=== PATIENT | female | born 1995 | race Caucasian/White ===

== ENCOUNTER 2018-05-12 16:41 | Emergency (ER) | payer MEDICAID ==
[~2018-05-12] VITALS: Ht 165.1 cm; Wt 50.4 kg
[2018-05-12 17:10] VITALS: BP 121/80
--- NOTE | 2018-05-12 17:49 | NUR ---
PATIENT AMBULATED TO BED 2
--- NOTE | 2018-05-12 17:55 | NUR ---
PATIENT PRESENTS TO ED OR SUTURE REMOVAL, HAS 8 STITCHES TO L FOREARM. NO BLEEDING NOTED OR FOUL ODOR. PATIENT STATES PAIN OF 4/10 AT THIS TIME; VSS; PATIENT POSITIONED FOR COMFORT; HOB ELEVATED; BEDRAILS UP X2; BED DOWN. ER MD MADE AWARE OF PT STATUS.
--- NOTE | 2018-05-12 17:59 | NUR ---
DR. MUÑOZ AT BEDSIDE TO REMOVE THE SUTURES.
--- NOTE | 2018-05-12 18:00 | NUR ---
PT STATED HUNGRY, FOOD OFFERED, PT STATED SHE [facility].
--- NOTE | 2018-05-12 18:13 | NUR ---
Patient discharged with v/s stable. Written and verbal after care instructions given and explained. Patient verbalized understanding. Ambulatory with steady gait. All questions addressed prior to discharge. Advised to follow up with PMD.
== END 2018-05-12 18:13 | disposition home or self-care (01) ==
LOC: MED 16:41
DX: Z48.02 Encounter for removal of sutures (principal)
CPT/HCPCS: 99283

== ENCOUNTER 2018-05-19 10:34 | Inpatient (IN) | payer MEDICAID ==
[~2018-05-19] VITALS: Ht 165.1 cm; Wt 51.3 kg
[2018-05-19 10:40] VITALS: BP 117/98
--- NOTE | 2018-05-19 10:42 | NUR ---
PT AMB TO ER BED 3 WITH MOM AT SIDE.
--- NOTE | 2018-05-19 10:51 | NUR ---
PT BIB STAFF OF [facility] FOR LEFT ARM PAIN. PT NOTED WITH MULTIPLE FRESH CUT WOUND ON LEFT ARM. PT ADMITS CUTTING ARM WITH RAZOR TO COPE ANXIETY. NO ACTIVE BLEEDING FROM THE CUT SITE AT THIS TIME. MULTIPLE OLD CUT SACBS NOTED ON LEFT ARM. STATES PAIN OF 4/10 AT THIS TIME. DENIES ANY FEVER. DENIES ANY OTHER MEDICAL PROBLEM AT THIS TIME. VSS. ER AWARE.
[2018-05-19] MEDS ORDERED: LIDOCAINE 1% 500 MG/50 ML VIAL INJ ONE ×2 (10:54→10:55)
--- NOTE | 2018-05-19 10:54 | NUR ---
PT EVALUATED BY MARK CRAFT.
[2018-05-19] MEDS ORDERED: LIDOCAINE MPF 1% 5mL VIAL ONE ×2 (11:25→13:53)
[2018-05-19 11:35] LABS: BASOPHILS % (AUTO) 0.4 % (0.0-2.0); EOSINOPHILS # (AUTO) 0.1 K/uL (0-0.4); EOSINOPHILS % (AUTO) 1.3 % (0.0-4.0); LYMPHOCYTES # (AUTO) 1.3 K/uL (2.5-16.5); LYMPHOCYTES % (AUTO) 15.2 % (20.5-51.1); MEAN CORPUSCULAR HEMOGLOBIN 31 pg (27-31); MEAN CORPUSCULAR HGB CONC 34 g/dL (33-37); MEAN CORPUSCULAR VOLUME 92.2 fL (80-94); MONOCYTES # (AUTO) 0.6 K/uL (0.8-1.0); MONOCYTES % (AUTO) 7.2 % (1.7-9.3); NEUTROPHILS # (AUTO) 6.7 K/uL (1.8-7.7); NEUTROPHILS % (AUTO) 75.9 % (42.2-75.2); PLATELET COUNT (AUTO) 303 K/uL (140-450); RED BLOOD CELL COUNT(AUTO) 4.44 MIL/uL (4.20-5.40); RED CELL DISTRIBUTION WIDTH 12.9 % (11.6-13.7); WHITE BLOOD COUNT (AUTO) 8.8 K/uL (4.8-10.8)
--- NOTE | 2018-05-19 11:39 | NUR ---
PT MOVED TO ER BED 4 WITH EMT JUSTIN AT BEDSIDE. [facility] SECURITY AT BEDSIDE-ALL BELONGING SENT. RT AT BEDSIDE. LAB AT BEDSIDE UA/UDS SENT TO LAB
--- NOTE | 2018-05-19 11:48 | NUR ---
CALLED [facility] FOR 1570 EVALUATION.
[2018-05-19 11:49] LABS: ANION GAP 13.5 (8-16); CARBON DIOXIDE 27.1 mmol/L (21-32); CHLORIDE 103 mmol/L (98-107); CREATININE 0.8 mg/dL (0.6-1.3); GFR ARICAN-AMERICAN 114 mL/min (>90); GLUCOSE 86 mg/dL (74-106); POTASSIUM 3.6 mmol/L (3.5-5.1); SODIUM SERUM 140 mmol/L (136-145); UREA NITROGEN, BLOOD 13 mg/dL (7-18)
--- NOTE | 2018-05-19 11:49 | NUR ---
[place] [employer] AT THE BEDSIDE EVALUATING PT AT THIS TIME.
[2018-05-19 11:51] LABS: APPEARANCE,URINE SL CLOUDY (CLEAR); BILIRUBIN,URINE NEGATIVE (NEGATIVE); BLOOD, URINE TRACE-I (NEGATIVE); COLOR,URINE YELLOW (YELLOW); LEUKOCYTE ESTERASE ,URINE 3+ (NEGATIVE); NITRITE, URINE NEGATIVE (NEGATIVE); PH,URINE 6.5 (5.0-9.0); UGLUCOSE NEGATIVE (NEGATIVE)
[2018-05-19 11:54] LABS: ASPARTATE AMINOTRANSFERASE 27 U/L (15-37); TOTAL BILIRUBIN 0.2 mg/dL (0.0-1.0)
[2018-05-19 11:54] LABS: BARBITURATE, URINE NEG. ng/ml (NEG <=200); BENZODIAZEPINE, URINE NEG. ng/mL (NEG <=200); CANNABINOID, URINE NEG. ng/mL (NEG <=50); COCAINE, URINE NEG. ng/mL (NEG <=300); OPIATE, URINE NEG. ng/mL (NEG <=2000); PHENCYCLIDINE SCREEN,URINE NEG. ng/mL (NEG <=25)
[2018-05-19 11:56] LABS: RBC,URINE 11-20 (MOD) /HPF (0-5); WBC,URINE 80-100 /HPF (0-5)
[2018-05-19] MEDS ORDERED: cefTRIAXone 1,000 MG VIAL ONE (13:54)
--- NOTE | 2018-05-19 13:56 | NUR ---
PT MEDICALLY CLEARED ACCORDING TO DR JONES, TELEPSYCH CONSULT REQUEST SUBMITTED
--- NOTE | 2018-05-19 14:42 | NUR ---
XYLOCAINE 1% WAS USED BY DOCTOR DURING SUTURE PROCEDURE.
--- NOTE | 2018-05-19 15:14 | NUR ---
SPOKE WITH DR. JI AND GAVE REPORT ON PATIENT
--- NOTE | 2018-05-19 15:26 | NUR ---
PSYCH CONSULT WITH DR BURGOS STARTED
--- NOTE | 2018-05-19 15:40 | NUR ---
SPOKE WITH DR. JI AND HE RECOMMENDS ADMISSION TO INPATIENT FACILITY. DR. JONES MADE AWARE. HX---BIPOLAR AND ANXIETY NO LONGER TAKING MEDICATIONS DUE TO LACK OF FINANCIAL SUPPORT
--- NOTE | 2018-05-19 17:00 | NUR ---
RESTING COMFORTABLY AT THIS TIME. ALTON AT THE BEDSIDE. DRESSING SITE INTACT.
--- NOTE | 2018-05-19 17:18 | NUR ---
Called [facility]ara [facility], they have no beds at this time and are still reviewing charts.
--- NOTE | 2018-05-19 17:19 | NUR ---
Called [facility], s/w Laura. No beds at this time.
--- NOTE | 2018-05-19 17:21 | NUR ---
Called [facility] and s/w Aj, they have no beds at this time.
--- NOTE | 2018-05-19 17:28 | NUR ---
Called jimmy [facility]. No beds at this time.
--- NOTE | 2018-05-19 18:10 | NUR ---
Packet faxed to [facility].
--- NOTE | 2018-05-19 19:16 | NUR ---
REPORT GIVEN TO SCREEN EXAMINER RN.
[2018-05-19] MEDS ORDERED: MORPHINE SULFATE 2 MG/ML SYR IVP PRN (20:55)
[2018-05-19] MEDS ORDERED: HYDROcodone/APAP 7.5/325 MG 1 TAB PO PRN (20:55)
[2018-05-19] MEDS ORDERED: ONDANSETRON 4 MG/2 ML VIAL IM/IVP PRN (20:55)
[2018-05-19] MEDS ORDERED: DOCUSATE SODIUM 100 MG GELCAP PO PRN (20:55)
--- NOTE | 2018-05-19 21:05 | NUR ---
development technical lead at bedside.
--- NOTE | 2018-05-19 21:34 | NUR ---
PT COOPERATIVE AND ACTING APPROPRIATLY. PT IS AAOX4. SITTER AT BEDSIDE.
--- NOTE | 2018-05-19 21:57 | NUR ---
PATIENT TAKEN TO ROOM 110-A FOR CONTINUED CARE AND MONITORING ON THE MED SURG FLOOR UNDER THE DIRECTION OF DR COHEN. REPORT GIVEN TO RN. PATIENT STABLE AND CALM DURING TRANSFER.
[2018-05-19 22:00] VITALS: BP 109/75
--- NOTE | 2018-05-19 22:00 | NUR ---
PT ARRIVED TO UNIT VIA WHEELCHAIR AND AMBULATED WITHOUT ASSISTANCE TO BED-STABLE. AOX4, ON ROOM AIR WITH RIGHT AC #20G. LEFT SELF INFLICTED LACERATIONS ON FA. 2.5 INCHES WITH 3 STITCHES AND 3.5 WITH 4 STITCHES. MULTIPLE LACERATIONS WITH SURGICAL GLUE APPLIED- PICTURES IN CHART- PLEASE SEE WOUND ASSESSMENT. VITAL SIGNS TAKEN AND TOLERATED WELL. MRSA NARES COLLECTED. DISCUSSED PLAN OF CARE AND PT VERBALIZED UNDERSTANDING. NO S/S OF RESPIRATORY DISTRESS OR DISCOMFORT NOTED AT THIS TIME. ORIENTED PT TO BEDROOM, CALL LIGHT AND BATHROOM. BED IN LOWEST POSITION, BED BREAKS ON, BOTH SIDE RAILS UP. BEDSIDE TABLE AND CALL LIGHT ARE WITHIN REACH. WILL CONTINUE TO MONITOR.
[2018-05-19] MEDS: NACL 0.9% 1,000 ML IV SCH (22:22)
[2018-05-19 22:23] LABS: PROTHROMBIN TIME 10.4 secs (10.8-13.4)
[2018-05-19 22:47] LABS: MAGNESIUM 2.2 mg/dL (1.8-2.4); PHOSPHORUS 4.6 mg/dL (2.5-4.9); THYROID STIMULATING HORMONE 2.58 uIU/mL (0.34-3.74)
--- NOTE | 2018-05-20 | NUR ---
PT RESTING IN BED. NO S/S OF RESPIRATORY DISTRESS OR DISCOMFORT NOTED AT THIS TIME. WILL CONTINUE TO MONITOR.
--- NOTE | 2018-05-20 00:26 | NUR ---
Follow up calls were made to the contracted facilities. Still no beds available at this time. [facility], spoke with Dustin. [facility], spoke with Wild. [facility], spoke with James. [facility], spoke with Halima. [facility], spoke with Josephine. [facility], spoke with Mela. will notify the unit when we have any new information.
--- NOTE | 2018-05-20 02:00 | NUR ---
PT CONTINUES TO SLEEP IN BED. NO S/S OF RESPIRATORY DISTRESS OR DISCOMFORT NOTED AT THIS TIME. WILL CONTINUE TO MONITOR.
--- NOTE | 2018-05-20 04:00 | NUR ---
PT CONTINUES TO SLEEP IN BED. NO S/S OF RESPIRATORY DISTRESS OR DISCOMFORT NOTED AT THIS TIME. WILL CONTINUE TO MONITOR.
--- NOTE | 2018-05-20 06:00 | NUR ---
PT CONTINUES TO SLEEP IN BED. NO S/S OF RESPIRATORY DISTRESS OR DISCOMFORT NOTED AT THIS TIME. WILL CONTINUE TO MONITOR.
[2018-05-20] MEDS: NACL 0.9% 1,000 ML IV SCH ×2 (06:58→17:13)
[2018-05-20 07:13] LABS: BASOPHILS % (AUTO) 0.5 % (0.0-2.0); EOSINOPHILS # (AUTO) 0.2 K/uL (0-0.4); EOSINOPHILS % (AUTO) 3.7 % (0.0-4.0); HEMATOCRIT 36.4 % (36-48); HEMOGLOBIN 12.4 g/dL (12.0-16.0); LYMPHOCYTES # (AUTO) 1.7 K/uL (2.5-16.5); LYMPHOCYTES % (AUTO) 30.4 % (20.5-51.1); MEAN CORPUSCULAR HEMOGLOBIN 32 pg (27-31); MEAN CORPUSCULAR HGB CONC 34 g/dL (33-37); MEAN CORPUSCULAR VOLUME 92.2 fL (80-94); MONOCYTES # (AUTO) 0.7 K/uL (0.8-1.0); MONOCYTES % (AUTO) 12.9 % (1.7-9.3); NEUTROPHILS % (AUTO) 52.5 % (42.2-75.2); PLATELET COUNT (AUTO) 269 K/uL (140-450); RED BLOOD CELL COUNT(AUTO) 3.95 MIL/uL (4.20-5.40); RED CELL DISTRIBUTION WIDTH 12.7 % (11.6-13.7); WHITE BLOOD COUNT (AUTO) 5.8 K/uL (4.8-10.8)
--- NOTE | 2018-05-20 07:28 | NUR ---
ENDORSED PT CARE TO DAY SHIFT NURSE MAYO FOR CONTINUITY OF CARE.
--- NOTE | 2018-05-20 07:35 | NUR ---
RECEIVED REPORT FROM INSIDE HORTICULTURAL SPECIALTY GROWER NURSE. PATIENT LYING DOWN IN BED SLEEPING, AROUSABLE BY VOICE. NO DISTRESS NOTED. DENIES ANY PAIN. DENIES ANY THOUGHTS OF HARMING SELF AT THIS TIME. AAOX4, CALM, COOPERATIVE, SKIN COLOR APPROPRIATE TO ETHNICITY, WARM TO TOUCH. HAS LEFT FOREARM LACERATIONS, DRESSING IS DRY AND INTACT. IV SITE INTACT, PATENT, AND INFUSING IVF PER MD ORDERS. RESPIRATIONS EVEN, UNLABORED, ON ROOM AIR. REVIEWED PLAN OF CARE WITH PATIENT. PATIENT VERBALIZED UNDERSTANDING. SAFETY MEASURES IN PLACE, SITTER AT BEDSIDE. WILL CONTINUE TO MONITOR.
[2018-05-20 07:48] LABS: MAGNESIUM 2.1 mg/dL (1.8-2.4); PHOSPHORUS 4.5 mg/dL (2.5-4.9)
--- NOTE | 2018-05-20 07:53 | NUR ---
PATIENT HAS BEEN SCREENED AND CATEGORIZED LOW NUTRITION RISK. PATIENT WILL BE SEEN WITHIN 7 DAYS OF ADMISSION. 05/26/[address]
[2018-05-20 08:00] VITALS: BP 104/56
--- NOTE | 2018-05-20 08:20 | NUR ---
GAVE REPORT TO RYAN HERNANDEZ FOR CONTINUITY OF CARE. PATIENT IN STABLE CONDITION.
--- NOTE | 2018-05-20 08:21 | NUR ---
Received report from nurse Gaitan. Pt resting quietly in bed, no signs of distress. Left forearm sutures dry & intact. No c/o pain. Right AC IV asymptomatic with ongoing NS @ 100ml/hr. Sitter at bedside for continuous monitoring.
[2018-05-20] MEDS: LACTOBACILLUS RHAMNOSUS GG 1 EACH CAP PO SCH (08:32)
[2018-05-20 08:42] LABS: CHOL/HDL RATIO 2.4 (1-4.5)
[2018-05-20 08:50] LABS: ANION GAP 14.1 (8-16); CARBON DIOXIDE 26.2 mmol/L (21-32); CREATININE 0.8 mg/dL (0.6-1.3); POTASSIUM 4.3 mmol/L (3.5-5.1)
[2018-05-20] MEDS ORDERED: ESCITALOPRAM 20 MG TAB PO SCH (09:00)
--- NOTE | 2018-05-20 10:00 | NUR ---
Dr. Niño (psychiatrist) came in to assess pt.
--- NOTE | 2018-05-20 11:22 | NUR ---
Dr. Farley at bedside to assess pt.
--- NOTE | 2018-05-20 11:45 | NUR ---
Left forearm lacerations dry, scabs & sutures intact, & BRYAN. Pt requests to cover with gauze. Lacerations flushed with NS, patted dry, painted lightly with betadine, & wrapped whole forearm with stretch gauze. Pt denies any pain during tx. Pt verbalized that she was cutting herself to replace her addiction with meth. Active listening, validation, & reassurance provided. Pt interacting appropriately. Sitter at bedside.
[2018-05-20 16:00] VITALS: BP 99/56
--- NOTE | 2018-05-20 19:15 | NUR ---
Report given to pm nurse Dxa. Pt quietly resting in bed, awake, no signs of distress.
--- NOTE | 2018-05-20 19:16 | NUR ---
RECEIVED PT ON BED, AAOX4, CALM AND COOPERATIVE, DENIES ANY INTENTION TO HARM SELF AT THIS TIME, IVF INFUSING WELL, DRESSING TO LEFT ARM DRY AND INTACT, MAINTAINED ON 5150, SITTER IN PLACED.
[2018-05-20] MEDS ORDERED: ZOLPIDEM 5 MG TAB PO ONE (20:20)
--- NOTE | 2018-05-20 20:35 | NUR ---
PT AMBULATED TO BR WITH STEADY GAIT, PT REQUESTING SOMETHING FOR SLEEP, DR ANDRADE WITH NEW ORDER, MEDICATED WITH AMBIEN PO ORDERED, ALL NEEDS ATTENDED.
--- NOTE | 2018-05-20 22:10 | NUR ---
PT SLEEPING, NO SIGNS OF DISTRESS, MONITORED CLOSELY, SITTER IN PLACE.
[2018-05-21 00:35] VITALS: BP 96/50
--- NOTE | 2018-05-21 00:35 | NUR ---
PT AWAKE, VITAL SIGNS STABLE, DENIES PAIN, AMBULATED TO BR WITH STEADY GAIT, VOIDED FREELY, SANITARY PAD PROVIDED PER REQUEST, CONTINUE TO MONITOR CLOSELY, SITTER IN PLACE.
[2018-05-21] MEDS: NACL 0.9% 1,000 ML IV SCH (03:25)
--- NOTE | 2018-05-21 03:52 | NUR ---
PT AMBULATED TO BR WITH STEADY GAIT, IVF INFUSING WELL, CALM AND COOPERATIVE, MONITORED CLOSELY.
--- NOTE | 2018-05-21 05:20 | NUR ---
At this time there are still no vacancy at any of the designated facilities , will endorsed to AM shift
[2018-05-21] MEDS ORDERED: INFLUENZA VIRUS VACCINE QUAD 0.5 ML SYR IMVAC PRN (06:20)
[2018-05-21] MEDS ORDERED: PNEUMOCOCCAL VACCINE 23 MCG/0.5 ML VIAL IMVAC PRN (06:20)
--- NOTE | 2018-05-21 06:30 | NUR ---
PT AWAKE ASKING WHAT TIME IS BREAKFAST, MADE AWARE OF TIME, DENIES ANY PAIN, IVF INFUSING WELL, MONITORED CLOSELY.
--- NOTE | 2018-05-21 07:16 | NUR ---
PT AWAKE, NO SIGNS OF DISTRESS, REPORT GIVEN TO RN DAVID FOR CONTINUITY OF CARE.
--- NOTE | 2018-05-21 07:17 | NUR ---
Report received from pm nurse Dax. Pt asleep in bed, respirations even & nonlabored, FLACC 0. RAC IV asymptomatic with ongoing NS @ 100ml/hr. Sitter at bedside.
[2018-05-21 08:00] VITALS: BP 111/73
[2018-05-21] MEDS: LACTOBACILLUS RHAMNOSUS GG 1 EACH CAP PO SCH (09:06)
[2018-05-21] MEDS: ESCITALOPRAM 20 MG TAB PO SCH (09:06)
--- NOTE | 2018-05-21 10:15 | NUR ---
Pt requesting for reading materials. desk pen set assembler notified of request, will bring reading materials to room.
--- NOTE | 2018-05-21 10:53 | NUR ---
PT COMPLAINED THAT BANDAGE ON ARM WAS ITCHING. CHANGED BANDAGE. CLEANED WOUNDS WITH NS AND BEDADINE. AND PLACED SMALLER DRESSINGS ON WOUNDS.
--- NOTE | 2018-05-21 11:20 | NUR ---
Dr. Vail at bedside to asses pt. Pt interacting appropriately.
[2018-05-21 14:29] LABS: BASOPHILS % (AUTO) 0.8 % (0.0-2.0); EOSINOPHILS # (AUTO) 0.2 K/uL (0-0.4); EOSINOPHILS % (AUTO) 3.9 % (0.0-4.0); HEMATOCRIT 36.3 % (36-48); HEMOGLOBIN 12.4 g/dL (12.0-16.0); LYMPHOCYTES % (AUTO) 31.8 % (20.5-51.1); MEAN CORPUSCULAR HEMOGLOBIN 31 pg (27-31); MEAN CORPUSCULAR HGB CONC 34 g/dL (33-37); MEAN CORPUSCULAR VOLUME 91.8 fL (80-94); MONOCYTES # (AUTO) 0.6 K/uL (0.8-1.0); MONOCYTES % (AUTO) 10.1 % (1.7-9.3); NEUTROPHILS # (AUTO) 3.3 K/uL (1.8-7.7); NEUTROPHILS % (AUTO) 53.4 % (42.2-75.2); PLATELET COUNT (AUTO) 279 K/uL (140-450); RED BLOOD CELL COUNT(AUTO) 3.96 MIL/uL (4.20-5.40); RED CELL DISTRIBUTION WIDTH 12.8 % (11.6-13.7); WHITE BLOOD COUNT (AUTO) 6.3 K/uL (4.8-10.8)
[2018-05-21 14:45] LABS: ANION GAP 13.3 (8-16); CARBON DIOXIDE 27.5 mmol/L (21-32); CREATININE 0.8 mg/dL (0.6-1.3); POTASSIUM 3.8 mmol/L (3.5-5.1)
--- NOTE | 2018-05-21 14:55 | NUR ---
ROUNDED ON PT. PT RESTING IN BED. SITTER AT BEDSIDE. WILL CONTINUE TO MONITOR
[2018-05-21 16:00] VITALS: BP 110/68
--- NOTE | 2018-05-21 18:10 | NUR ---
Inpatient psych placement f/u: Received call from Yolanda ([facility]), states that pt was denied placement from their hospital because they do not accept commercial insurance.
--- NOTE | 2018-05-21 19:15 | NUR ---
endorsed pt to nightshift nurse. pt resting comfortably in bed. sitter at bedside. pt stable all safety measures in place
--- NOTE | 2018-05-21 19:16 | NUR ---
RECEIVED PT ON BED, AAOX4, CALM AND COOPERATIVE READING A MAGAZINE, DENIES ANY INTENTION TO HARM SELF AT THIS TIME, DRESSING TO LEFT ARM DRY AND INTACT, STILL ON 5150 HOLD, SITTER IN PLACE.
[2018-05-21] MEDS ORDERED: ZOLPIDEM 5 MG TAB PO ONE (20:10)
--- NOTE | 2018-05-21 20:22 | NUR ---
AMBIEN PO GIVEN FOR INSOMNIA, MONITORED CLOSELY.
--- NOTE | 2018-05-21 20:59 | NUR ---
There are still no placement available at this time will notify charge nurse if a bed is found for placement.
--- NOTE | 2018-05-21 21:30 | NUR ---
PT REQUESTING TO WALK AROUND THE UNIT, ACCOMPANIED BY CHARGE NURSE KRISTY, TOLERATED WELL, WENT BACK TO BED, MONITORED CLOSELY.
--- NOTE | 2018-05-21 22:10 | NUR ---
PT STILL CANT SLEEP, REQUESTING FOR ANOTHER SLEEPING PILL, TALKED TO DR ANDRADE AND STATED JUST WAIT FOR ANOTHER HOUR FOR THE SLEEPING PILL TO TAKE EFFECT AND TO LET HER KNOW IF PT STILL AWAKE, PT MADE AWARE, WARM MILK PROVIDED A SLEEPING AID, MONITORED CLOSELY.
--- NOTE | 2018-05-21 23:20 | NUR ---
Spoke to Anthony at [facility] , packet still being looked over, will let Lisa DAVIS know if placement is found.
--- NOTE | 2018-05-21 23:25 | NUR ---
PT SLEEPING, NO SIGNS OF DISTRESS, CONTINUE TO MONITOR CLOSELY, SITTER IN PLACE.
[2018-05-22 01:00] VITALS: BP 100/50
--- NOTE | 2018-05-22 01:00 | NUR ---
PT AMBULATED TO BR WITH STEADY GAIT, VITAL SIGNS STABLE, DENIES ANY PAIN, MONITORED CLOSELY, SITTER IN PLACE.
--- NOTE | 2018-05-22 05:00 | NUR ---
PT SLEEPING, NO DISTRESS NOTED, MONITORED CLOSELY.
--- NOTE | 2018-05-22 07:15 | NUR ---
PT SLEEPING, NO SIGNS OF DISTRESS, REPORT GIVEN TO RYAN GARCIA FOR CONTINUITY OF CARE.
--- NOTE | 2018-05-22 07:20 | NUR ---
RECEIVED PT FROM ACCOUNT AUDITOR NURSEVIKASH. PT IS AWAKE AND LYING ON THE BED WITH AN IV LINE ON THE RT AC G.20 ON SALINE LOCK, ON A 5150 HOLD WITH 1:1 SITTER ON THE BEDSIDE, PT DENIES PAIN AND NO SOB NOTED, PT IS AMBULATORY, NO SIGN OF DISTRESS NOTED AND WILL MONITOR PT.
[2018-05-22 07:38] LABS: BASOPHILS % (AUTO) 0.5 % (0.0-2.0); EOSINOPHILS # (AUTO) 0.2 K/uL (0-0.4); EOSINOPHILS % (AUTO) 3.4 % (0.0-4.0); HEMATOCRIT 37.6 % (36-48); LYMPHOCYTES # (AUTO) 1.8 K/uL (2.5-16.5); LYMPHOCYTES % (AUTO) 24.3 % (20.5-51.1); MEAN CORPUSCULAR HEMOGLOBIN 31 pg (27-31); MEAN CORPUSCULAR HGB CONC 35 g/dL (33-37); MEAN CORPUSCULAR VOLUME 90.8 fL (80-94); MONOCYTES # (AUTO) 0.8 K/uL (0.8-1.0); MONOCYTES % (AUTO) 10.7 % (1.7-9.3); NEUTROPHILS # (AUTO) 4.5 K/uL (1.8-7.7); NEUTROPHILS % (AUTO) 61.1 % (42.2-75.2); PLATELET COUNT (AUTO) 271 K/uL (140-450); RED BLOOD CELL COUNT(AUTO) 4.14 MIL/uL (4.20-5.40); RED CELL DISTRIBUTION WIDTH 12.8 % (11.6-13.7); WHITE BLOOD COUNT (AUTO) 7.3 K/uL (4.8-10.8)
[2018-05-22 07:59] LABS: ANION GAP 12.8 (8-16); CARBON DIOXIDE 27.3 mmol/L (21-32); CREATININE 0.7 mg/dL (0.6-1.3); POTASSIUM 4.1 mmol/L (3.5-5.1)
[2018-05-22 08:00] VITALS: BP 115/65
--- NOTE | 2018-05-22 08:00 | NUR ---
PT IS AWAKE AND VITAL SIGNS CHECKED DONE, AND IS WITHIN NORMAL LIMIT. NO SIGN OF DISTRESS NOTED AND WILL MONITOR PT.
[2018-05-22] MEDS: LACTOBACILLUS RHAMNOSUS GG 1 EACH CAP PO SCH (09:00)
[2018-05-22] MEDS: ESCITALOPRAM 20 MG TAB PO SCH (09:01)
--- NOTE | 2018-05-22 09:05 | NUR ---
PT IS AWAKE AND IS CALM, FOLLOWS COMMAND, 1:1 SITTER ON THE BEDSIDE, ORAL AND IV MEDICATIONS WERE GIVEN AND PT TOLERATED IT, WILL MONITOR PT.
--- NOTE | 2018-05-22 11:00 | NUR ---
PT IS SLEEPING NOW, 1:1 SITTER ON THE BEDSIDE.
--- NOTE | 2018-05-22 13:46 | NUR ---
PT IS AWAKE AND WAS GIVEN A BISCUIT AND WATER, PT IS CALM AND RESPONDING APPROPRIATELY. 1:1 SITTER ON THE BEDSIDE. WILL MONITOR PT.
--- NOTE | 2018-05-22 15:40 | NUR ---
PT STOOD UP FROM THE BED AND WENT OUT OF THE DOOR OF THE ROOM BU WA APPREHENDED, OPT VERBALIZED SHE IS FEELING ANXIOUS LAYING DOWN ON THE BED, PT WAS ASSISTED BACK INSIDE THE ROOM AND SAT CALMLY ON THE BED, 1:1 SITTER ON THE BEDSIDE. WILL MONITOR PT.
[2018-05-22 16:00] VITALS: BP 109/65
--- NOTE | 2018-05-22 16:12 | NUR ---
Regional Director Of Admissions Note: I called and spoke with Pauline from [facility] ([place] , she stated referral had been disregarded by their staff because they thought patient had commercial health insurance coverage. I told her it was [facility] managed by [facility]. She requested I fax referral to her. I faxed inquiry, fax .
[2018-05-22] MEDS: ACETAMINOPHEN 325 MG TAB PO PRN ×2 (17:56→22:19)
--- NOTE | 2018-05-22 17:56 | NUR ---
PT VERBALIZED A HEADACHE OF A PAIN RATE OF 5/10 AND ASKED FOR TYLENOL, MEDICATION WAS GIVEN AND PT TOLERATED IT. WILL RE-ASSESS PT IN AN HOUR.
--- NOTE | 2018-05-22 18:45 | NUR ---
DR. DAVIS WAS HERE FOR PATIENT ROUNDS.PT ABLE TO UNDERSTAND EXPLANATION AND ANSWER THE QUESTIONS APPROPRIATELY. Addendum: 05/22/18 at 2344 by Annie Morales RN AMEND TIME TO 2100
--- NOTE | 2018-05-22 18:56 | NUR ---
PT IS SLEEPING NOW.
--- NOTE | 2018-05-22 19:25 | NUR ---
ENDORSED PT TO CATERING DRIVER NURSECE FOR CONTINUITY OF CARE, PT IS STABLE WITH 1:1 SITTER ON THE BEDSIDE.
--- NOTE | 2018-05-22 19:26 | NUR ---
RECEIVED PT FROM AM SHIFT NURSEJOSE. PT AMBULATORY. PT IS AWAKE AND LYING ON THE BED WITH AN IV LINE ON THE LAC G.22 ON SALINE LOCK, ON A 5150 HOLD WITH 1:1 SITTER ON THE BEDSIDE, PT DENIES PAIN AND NO SOB NOTED, NO SIGN OF DISTRESS NOTED AND WILL MONITOR PT. Addendum: 05/22/18 at 2359 by Annie Morales RN PLS AMEND TO NEYMAR Valdez 20
[2018-05-22] MEDS ORDERED: MELATONIN 3 MG TAB PO PRN (20:30)
--- NOTE | 2018-05-22 20:36 | NUR ---
Still awaiting for psych re eval of the pt. in order to find placement for pt., Annie DAVIS made aware.
--- NOTE | 2018-05-22 20:45 | NUR ---
[facility] WAS HERE AND INTERVIEWED PATIENT
--- NOTE | 2018-05-22 21:00 | NUR ---
DR. DAVIS WAS HERE FOR PATIENT ROUNDS.PT ABLE TO UNDERSTAND EXPLANATION AND ANSWER THE QUESTIONS APPROPRIATELY.
--- NOTE | 2018-05-23 00:10 | NUR ---
FAXED DOCUMENT TO CM
--- NOTE | 2018-05-23 00:10 | NUR ---
'S PROGRESS NOTES TO RETAIL EQUIPMENT ASSOCIATE SAID: [facility]. BUT THE DOCTOR;Guillermo MELENDEZ ON HER CHART SAUS; D/C 5150 HOLD. AND TO TRANSFER BACK TO REHAB FACILITY. WILL CONFORM WITH [facility] WHERE TO TRANSFER.
[2018-05-23 00:22] VITALS: BP 108/71
[2018-05-23 05:09] VITALS: BP 123/89
--- NOTE | 2018-05-23 05:48 | NUR ---
PT SLEPT WELL LAST NIGHT W/ OCCASIONAL TRIPS TO THE BATHROOM. STILL RESTING COMFORTABLY IN BED.
--- NOTE | 2018-05-23 06:18 | NUR ---
PT, RESTING IN BED ON LOW LO'S POSITION, IN STABLE CONDITION, FOR CONTINUITY OF CARE OF NEXT SHIFT NURSE.
--- NOTE | 2018-05-23 07:10 | NUR ---
RECEIVED PT FROM SPORTS BROADCASTING INTERNSHIP NURSECE, PT IS ASLEEP AND LYING ON THE BED WITH SIDE RAILS UP AND BED IN LOW POSITION, SUICIDE PRECAUTION INITIATED, 1;1 SITTER ON THE BEDSIDE, PT HAS NO IV LINE ACCESS, PT PULLED IT OUT PER ENDORSEMENT AND REFUSED TO HAVE ANOTHER IV LINE INSERTION, RESPIRATION IS EVEN AND NO SIGN OF DISTRESS NOTED. WILL MONITOR PT.
--- NOTE | 2018-05-23 07:50 | NUR ---
PT IS AWAKE AND SEATED ON THE BED, VITAL SIGNS CHECKED AND BP IS 109/58, PULSE IS 94, TEMPERATURE IS 98.2, O2 SATURATION IS 100% AND RESPIRATION IS 16/MIN, PT DENIES PAIN AND NO SIGN OF DISTRESS NOTED, PT IS CALM AND QUIET SEATED ON THE BED, 1;1 SITTER ON BEDSIDE. WILL MONITOR PT.
[2018-05-23] MEDS ORDERED: ESCI20TA47 PO (08:17)
--- NOTE | 2018-05-23 08:45 | NUR ---
PT IS GETTING ANXIOUS RIGHT NOW AND IS ASKING WHEN SHE CAN GO, VERBALIZED THAT SHE WANTED TO CALL [facility].
--- NOTE | 2018-05-23 09:08 | NUR ---
RECEIVED CALL FROM DR. BO STATING SHE IS DISCHARGING THE PATIENT BACK TO [facility]. I CALLED [facility], , RESIDENTIAL SITE AND SPOKE WITH LIANA TSAI [phone]. SHE SAID THEY WILL TAKE THE PATIENT BACK AND SHE WILL ARRANGE TRANSPORT AND CALL ME BACK WITH THE TIME. I INFORMED DR. BO.
--- NOTE | 2018-05-23 09:22 | NUR ---
INFORMED DR. CONTRERAS THAT PT IS REFUSING TO TAKE HER AM MEDICATION AND IS BRAGGING TO HAVE A WALK IN THE HALLWAY, MD WILL SEE PT.
[2018-05-23] MEDS: ESCITALOPRAM 20 MG TAB PO SCH (09:26)
--- NOTE | 2018-05-23 09:26 | NUR ---
PT IS AWAKE AND IS WALKING AROUND THE ROOM, ANXIOUS, ORAL MEDICATION WAS GIVEN AND PT TOLERATED IT. 1;1 SITTER ON THE BEDSIDE. WILL MONITOR PT.
--- NOTE | 2018-05-23 10:09 | NUR ---
Flight Operations Manager Note: I called and spoke with Pauline from [facility] ([place]) , she stated referral had been disregarded by their staff because they thought patient had commercial health insurance coverage. I told her it was [facility] managed by [facility]. She requested I fax referral to her. I faxed inquiry, fax . Addendum: 05/23/18 at 1009 by Judith Gardner SS Please disregard above note
--- NOTE | 2018-05-23 10:09 | NUR ---
Extension Service Specialist Note: I called and spoke with Pauline from [facility] ([place]) , I informed Pauline patient no longer needs placement.
--- NOTE | 2018-05-23 11:32 | NUR ---
CARLOS FROM CALLED AND INFORMED THAT PT WILL BE TRANSFERRED BACK TO [facility] AND THAT CURING MACHINE OPERATOR WILL BE FROM THIS TIME TO NOON, CARLOS OF GAVE THE CALL BACK NO. [phone].
--- NOTE | 2018-05-23 11:40 | NUR ---
CALLED [facility] [place] [phone] AND GAVE REPORT TO PRIYANKA RAO LVN, REGARDING THE STATUS OF THE PT AND THE CARE THAT WAS GIVEN TO PT DURING CONFINEMENT AND EDITH MATHEW ACKNOWLEDGED AND VERBALIZED UNDERSTANDING.
--- NOTE | 2018-05-23 11:51 | NUR ---
CALLED PT NEXT OF KIN STATED IN HER CHART,KENN MANUEL, AT [phone], DID NOT PERSONALIZED LIVING MANAGER NURSE, ATTEMPTED TWICE, LEFT A VOICE MESSAGE INFORMING THAT PT WILL BE TRANSFERRED BACK TO [facility] TODAY, CALL BACK NO WAS LEFT IN THE MESSAGE FOR ANY INQUIRY.
--- NOTE | 2018-05-23 12:10 | NUR ---
DISCHARGED PT WITH THE PROTOTYPES PERSONNEL, INSTRUCTION AND TEACHINGS GIVEN TO PT AND VERBALIZED UNDERSTANDING, ARM BANDS REMOVED, BELONGINGS SENT TO PT. PT IS STABLE AT THIS TIME, BP IS 110/58, PULSE IS 85, TEMPERATURE IS 98, O2 SATURATION IS 100% AND RESPIRATION IS 16/MIN.
--- NOTE | 2018-05-23 12:13 | NUR ---
SPOKE TO DR. BO AND INFORMED THAT PT'S PRESCRIPTION HAD BEEN CALLED IN TO [facility] AND THAT INFORMED EDITH MATHEW ABOUT THE PRESCRIPTION.
--- NOTE | 2018-05-23 12:16 | NUR ---
I SPOKE WITH LIANA FROM [facility]. I TOLD HER THAT IS RECOMMENDING PSYCHIATRIST TO SEE PATIENT OVER THERE. SHE SAID SHE WOULD ARRANGE THAT. SHE SAID THAT SOMEONE FROM THE FACILITY WILL BE THERE TO MACHINIST SUPERVISOR THE PATIENT AROUND NOON. I INFORMED JOSE DAVIS
[2018-05-23] MEDS ORDERED: MELATONIN 3 MG TAB PO SCH (21:00)
--- NOTE | 2018-05-24 12:46 | NUR ---
Late entry. Rocephin 1000mg IVPB completed at 1530.
== END 2018-05-23 12:10 | disposition home or self-care (01) | DRG 463 ==
LOC: MED 10:34 → MTU 20:56
PROVIDERS: ADMIT General Practice; ATTEND General Practice
PROC: 3E0234Z Introduction of Serum, Toxoid and Vaccine into Muscle, Percutaneous Approach (ICD-10-PCS; principal; 2018-05-19)
DX: N39.0 Urinary tract infection, site not specified (principal); G93.40 Encephalopathy, unspecified; F32.9 Major depressive disorder, single episode, unspecified; R45.851 Suicidal ideations; Z91.14 Patient's other noncompliance with medication regimen; Z81.8 Family history of other mental and behavioral disorders; Z23 Encounter for immunization
CPT/HCPCS: 36415; 71045; 80048; 80053; 80305; 81001; 82150; 83036; 83690; 83735; 83880; 84100; 84443; 84484; 85025; 85610; 85730; 87081; 87086; 90471; 90715; 99285; G0482; J0696; J2001; J7030; J7060; Q0092